=== PATIENT | male | born 1930 | race Caucasian/White ===

== ENCOUNTER 2016-06-30 08:55 | Outpatient (CLI) | payer MEDICARE, BC ==
[~2016-06-30] VITALS: Ht 179.1 cm; Wt 90.9 kg
[~2016-06-30 08:55] MED LIST: /ESOM40CA PO; /WARF2TA PO; /WARF3TA PO; BUPR75TA5 PO; FURO40TA2 PO; LIDOCAINE PATCH 5% TD; LORA10TA2 PO; METO50TA2 PO; METO50TA4 PO; PRED5TAB PO; ULOR80TA2 PO; VICO7.5T11 PO; VITA100054 PO; WELL150T PO; ZETI10TA21 PO; [UNRECOGNIZED DRUG - CODE] PO
[2016-06-30] MEDS ORDERED: IRON SUCROSE 25 MG in NS 50 ML IV ONE (10:00)
[2016-06-30] MEDS ORDERED: IRON SUCROSE 475 MG in NS 250 ML IV ONE (10:30)
[2016-06-30] MEDS ORDERED: MAGN400T5 PO (10:34)
[2016-06-30] MEDS ORDERED: CYMB1CAP5 PO (10:34)
[2016-06-30] MEDS ORDERED: SYNT100T PO (10:34)
[2016-06-30] MEDS ORDERED: AMLO5TAB2 PO (10:34)
== END 2016-06-30 14:00 | disposition home or self-care (01) ==
LOC: M INFU 08:55
PROVIDERS: ATTEND Internal Medicine Nephrology
DX: D50.9 Iron deficiency anemia, unspecified (principal); I10 Essential (primary) hypertension; E07.9 Disorder of thyroid, unspecified; E78.5 Hyperlipidemia, unspecified; K21.9 Gastro-esophageal reflux disease without esophagitis; M54.2 Cervicalgia; M54.5 Low back pain; R23.3 Spontaneous ecchymoses; Z86.73 Personal history of transient ischemic attack (TIA), and cerebral infarction without residual deficits; Z88.8 Allergy status to other drugs, medicaments and biological substances; Z95.5 Presence of coronary angioplasty implant and graft; Z87.891 Personal history of nicotine dependence; Z79.899 Other long term (current) drug therapy
CPT/HCPCS: 96365; 96366; J1756

== ENCOUNTER → 2019-10-16 | Outpatient (REF) | payer MEDICARE, BC ==
[~2019-10-16] MED LIST changes: -/ESOM40CA PO; -/WARF2TA PO; -/WARF3TA PO; +AMLO5TAB6 PO; +COUM1TAB16 PO; +COUM1TAB19 PO; +CYMB1CAP5 PO; +MAGN400T5 PO; +NEXI1CAP3 PO; +SYNT100T PO
[2019-10-16 17:25] LABS: FOLATE 7.6 NG/ML
== END ==
LOC: M LAB REF 16:53
PROVIDERS: ATTEND Internal Medicine Nephrology
DX: D50.9 Iron deficiency anemia, unspecified (principal)

== ENCOUNTER 2020-01-29 08:03 | Outpatient (CLI) | payer MEDICARE, BC ==
[~2020-01-29] VITALS: Ht 177.8 cm; Wt 74.3 kg
[~2020-01-29 08:03] MED LIST changes: +ALBUTEROL SULFATE 2.5 MG/0.5 ML INH NEB SOLN INH PRN; +AMLO1TAB24 PO; -AMLO5TAB6 PO; +EPINEPHrine INJ 1 MG/ML 1ML AMP IM PRN; +FERRIC CARBOXYMALTOSE INJ 750 MG in NS 250 ML IV ONE; +NS 1,000 ML IV SCH; +diphenhydrAMINE 50MG/ML VIAL (J1200) IV PRN; +methylPREDNISolone 125MG 2ML VIAL IV PRN
[2020-01-29 08:27] VITALS: BP 149/64
[2020-01-29 10:19] VITALS: BP 159/69
== END 2020-01-29 10:30 | disposition home or self-care (01) ==
LOC: M INFU 08:03
PROVIDERS: ATTEND Internal Medicine Nephrology
DX: D50.9 Iron deficiency anemia, unspecified (principal); Z79.899 Other long term (current) drug therapy
CPT/HCPCS: 96365; J1439